=== PATIENT | male | born 2000 | race African-American/Black ===

== ENCOUNTER 2024-10-20 15:37 | Emergency (ER) | payer MEDICAID ==
[~2024-10-20] VITALS: Ht 180.3 cm; Wt 75.0 kg
[2024-10-20 15:39] VITALS: O2SAT 99
[2024-10-20 16:42] LABS: BASOPHILS % 0.9 % (0.0-2.0); HEMATOCRIT. 47.8 % (42.0-52.0); HEMOGLOBIN. 16.4 g/dL (14.0-18.0); LYMPHOCYTES % 36.5 % (20.0-50.0); MEAN CORPUSCULAR HEMOGLOBIN 31.7 pg (28.0-32.0); MEAN CORPUSCULAR HGB CONC 34.4 g/dL (31.0-37.0); MEAN CORPUSCULAR VOLUME 92.3 fL (80.0-94.0); MEAN PLATELET VOLUME 6.9 fl (7.4-10.4); NEUTROPHILS % 53.6 % (40.0-76.0); PLATELET 470 x1000/uL (130-400); RED BLOOD CELL COUNT 5.18 mill/uL (4.7-6.1); RED CELL DISTRIBUTION WIDTH 14.2 % (11.6-14.6); WHITE BLOOD COUNT 4.2 x1000/uL (4.5-11.0)
[2024-10-20 16:49] LABS: CHLORIDE 104 mEq/L (98-107); POTASSIUM 4.1 mEq/L (3.5-5.1); SODIUM 137 mEq/L (136-145)
[2024-10-20 16:50] LABS: CARBON DIOXIDE 25 mEq/L (21-32)
[2024-10-20 16:51] LABS: CALCIUM 10.2 mg/dL (8.7-10.4)
[2024-10-20 16:55] LABS: CREATININE 1.1 mg/dL (0.6-1.3); GLUCOSE 81 mg/dL (70-105); UREA NITROGEN BLOOD 11 mg/dL (9-23)
[2024-10-20 16:57] LABS: ACETAMINOPHEN < 2 ug/mL (10-30)
[2024-10-20 17:00] LABS: ETHANOL BLOOD < 10 mg/dL (<10)
[2024-10-20 17:01] LABS: CLARITY URINE CLEAR (CLEAR); COLOR URINE DARK YELLOW (YELLOW); GLUCOSE URINE NEGATIVE (NEGATIVE); KETONES URINE 2+ (NEGATIVE); NITRITE URINE NEGATIVE (NEGATIVE); OCCULT BLOOD URINE NEGATIVE (NEGATIVE); PH URINE 5.5 (4.5-8.0); PROTEIN URINE 1+ (NEGATIVE); SPECIFIC GRAVITY URINE 1.025 (1.005-1.030)
[2024-10-20 17:02] LABS: LEUKOCYTE ESTERASE URINE TRACE (NEGATIVE)
[2024-10-20 17:02] LABS: AMMONIA < 17 uMol/L (<32)
[2024-10-20 17:07] LABS: *AMPHETAMINES SCREEN URINE NEGATIVE (NEGATIVE); *BARBITURATES SCREEN URINE NEGATIVE (NEGATIVE); *BENZODIAZEPINES SCREEN URINE NEGATIVE (NEGATIVE); *COCAINE SCREEN URINE NEGATIVE (NEGATIVE); CANNABINOID URINE SCREEN PRESUMPTIVE POSITIVE (NEGATIVE); METHADONE URINE SCREEN NEGATIVE (NEGATIVE); OPIATES URINE SCREEN NEGATIVE (NEGATIVE); PHENCYCLIDINE URINE SCREEN NEGATIVE (NEGATIVE)
[2024-10-20 17:08] LABS: ECSTASY MDMA SCREEN URINE NEGATIVE (NEGATIVE)
[2024-10-20 17:31] LABS: BACTERIA URINE 1+; RBC URINE NONE SEEN /hpf (0-2); SQUAMOUS EPITHELIAL CELL URINE FEW /lpf (RARE/1+); WBC URINE 0-2 /hpf (0-2)
[2024-10-21] MEDS: LORAZEPAM 1MG TABLET PO ONE (09:00)
[2024-10-21] MEDS ORDERED: HYDROXYZINE 25MG TABLET PO ONE (11:45)
[2024-10-21] MEDS ORDERED: KETOROLAC 30MG/ML VIAL IM ONE (11:45)
[2024-10-21] MEDS: HYDROXYZINE 25MG TABLET PO SCH (11:56)
[2024-10-21] MEDS: KETOROLAC 30MG/ML VIAL IM SCH (11:57)
[2024-10-21 19:36] LABS: ALANINE AMINOTRANSFERASE 12 IU/L (10-49); ALBUMIN 4.6 g/dL (3.2-4.8); ASPARTATE AMINOTRANSFERASE 18 IU/L (<34); BILIRUBIN DIRECT 0.6 mg/dL (<=3.0); BILIRUBIN TOTAL 1.8 mg/dL (0.1-1.0); PROTEIN TOTAL 7.2 g/dL (6.0-8.3)
[2024-10-21] MEDS: OLANZAPINE 10 MG/VIAL IM ONE (22:06)
[2024-10-22 16:30] VITALS: BP 124/74; PULSE 86; RESP 16; TEMP 37.00296; O2SAT 100
== END 2024-10-22 17:32 ==
LOC: ER 15:37
DX: T50.902A Poisoning by unspecified drugs, medicaments and biological substances, intentional self-harm, initial encounter (principal); R45.851 Suicidal ideations; F12.90 Cannabis use, unspecified, uncomplicated; Z20.822 Contact with and (suspected) exposure to COVID-19; Y92.89 Other specified places as the place of occurrence of the external cause
CPT/HCPCS: 80076; 80305; 80048; 81003; 80307; 80329; 80320; 82140; 85025; 36415; 99285; 87426; 96372; Z7610 ×2; J3490; J1885; G0480